=== PATIENT | female | born 1970 | race Two or more races ===

== ENCOUNTER 2017-11-03 10:39 | Emergency (ER) | payer OTHER ==
[~2017-11-03] VITALS: Ht 165.1 cm; Wt 56.7 kg
== END 2017-11-03 14:12 | disposition home or self-care (01) ==
LOC: ER 10:39
DX: K52.9 Noninfective gastroenteritis and colitis, unspecified (principal)

== ENCOUNTER → 2024-04-18 | Emergency (ER) | payer OTHER ==
[~2024-04-18] VITALS: Ht 165.1 cm; Wt 64.4 kg
[~2024-04-18] MED LIST: BUTALB/ACETAMINOPHEN/CAFFEINE 1 TAB TABLET PO ONE; CEFTRIAXONE SODIUM 1,000 MG VIAL IV ONE; FAMOtidine 10 MG/ML (4ML VIAL) IV PUSH ONE; KETOROLAC TROMETHAMINE 30 MG VIAL IU ONE; PEPCID AC20 MG PO; PYRIDIUM DS200 MG PO; TAMSULOSIN HCL 0.4 MG CAP PO ONE; ZOFRAN8 MG PO
[2024-04-18 10:35] LABS: MEAN CELL VOLUME 87.6 fL (80.00-100.00); MEAN CORPUSCULAR HEMOGLOBIN 28.6 pg (27.00-32.0); MEAN CORPUSCULAR HGB CONC 32.6 g/dl (32.0-36.0); RED BLOOD COUNT 5.25 M/uL (4.00-6.00); RED CELL DISTRIBUTION WIDTH 12.8 % (11.5-14.5)
[2024-04-18 10:38] LABS: PLATELET COUNT 119 K/uL (150-450)
[2024-04-18 10:58] LABS: ALBUMIN 4.1 gm/dL (3.4-5.0); BILIRUBIN TOTAL 0.36 mg/dL (0.3-1.2); CALCIUM 8.9 mg/dL (8.5-10.1); CREATININE SERUM 0.78 mg/dL (0.55-1.02); GFR 77.55; GLOBULINA 3.3 G/DL (2.4-3.5); POTASSIUM 4.61 mEq/L (3.5-5.1); TOTAL PROTEIN 7.4 gm/dL (6.4-8.2)
[2024-04-18 12:01] LABS: URINE APPEARANCE Clear; URINE BILIRRUBIN Negative (NEGATIVE); URINE BLOOD Negative; URINE COLOR Yellow; URINE GLUCOSE Negative (NEGATIVE); URINE KETONE Trace (NEGATIVE); URINE LEUKOCYTE Negative; URINE NITRATE Negative; URINE PROTEIN 30 (NEGATIVE); URINE UROBILINOGEN 0.2 E.U./dl
[2024-04-18 12:05] LABS: URINE BACTERIA 767.3 uL (0.0-1933); URINE EPITHELIAL CELLS 10.9 uL (0.0-38.8); URINE RBC 11.4 uL (0.0-20.8); URINE WBC 6.8 uL (0.0-23.2)
[2024-04-18 12:22] LABS: URINE CAST 0.14 uL (0.0-1.40)
== END | disposition home or self-care (01) ==
LOC: ER 06:58
PROVIDERS: General Practice
DX: A90 Dengue fever [classical dengue] (principal); R50.9 Fever, unspecified; Z20.822 Contact with and (suspected) exposure to COVID-19

== ENCOUNTER 2024-04-20 18:11 | Inpatient (IN) | payer OTHER ==
[~2024-04-20] VITALS: Ht 165.1 cm; Wt 64.0 kg
[~2024-04-20 18:11] MED LIST changes: -BUTALB/ACETAMINOPHEN/CAFFEINE 1 TAB TABLET PO ONE; -CEFTRIAXONE SODIUM 1,000 MG VIAL IV ONE; -FAMOtidine 10 MG/ML (4ML VIAL) IV PUSH ONE; -KETOROLAC TROMETHAMINE 30 MG VIAL IU ONE; -TAMSULOSIN HCL 0.4 MG CAP PO ONE
[2024-04-20] MEDS ORDERED: ACETAMINOPHEN 500 MG GEL..CAP PO ONE (18:45)
[2024-04-20] MEDS ORDERED: 0.9 % SODIUM CHLORIDE 1,000 ML IV SCH ×2 (18:45→23:00)
[2024-04-20 21:54] LABS: INR 0.95; PARTIAL THROMBOPLASTIN TIME 27.9 SECONDS (22.0-34.0); PROTHROMBIN TIME 10.4 SECONDS (9.0-11.5)
[2024-04-20 22:08] LABS: ALBUMIN 3.1 gm/dL (3.4-5.0); BILIRUBIN TOTAL 0.23 mg/dL (0.3-1.2); CALCIUM 7.9 mg/dL (8.5-10.1); CREATININE SERUM 0.7 mg/dL (0.55-1.02); GFR 87.87; GLOBULINA 3.1 G/DL (2.4-3.5); POTASSIUM 3.59 mEq/L (3.5-5.1); TOTAL PROTEIN 6.2 gm/dL (6.4-8.2)
[2024-04-20 22:30] LABS: HEMATOCRIT 39.1 % (36.0-45.00); HEMOGLOBIN 12.8 g/dL (12.0-15.00); MEAN CELL VOLUME 87.2 fL (80.00-100.00); MEAN CORPUSCULAR HEMOGLOBIN 28.6 pg (27.00-32.0); MEAN CORPUSCULAR HGB CONC 32.8 g/dl (32.0-36.0); PLATELET COUNT 72 K/uL (150-450); RED BLOOD COUNT 4.48 M/uL (4.00-6.00); RED CELL DISTRIBUTION WIDTH 12.7 % (11.5-14.5)
[2024-04-20] MEDS ORDERED: ACETAMINOPHEN 500 MG GEL..CAP PO PRN (23:00)
[2024-04-20] MEDS ORDERED: MORPHINE SULFATE 2 MG/ML CARTRIDGE IV PRN (23:00)
[2024-04-21 05:16] LABS: MANUAL PLATELET COUNT 94
[2024-04-21 05:21] LABS: PLT IN CITRATE 56 K/uL (150-450)
[2024-04-21 06:19] LABS: URINE APPEARANCE Clear; URINE BILIRRUBIN Negative (NEGATIVE); URINE BLOOD Negative; URINE COLOR Yellow; URINE GLUCOSE Negative (NEGATIVE); URINE KETONE Negative (NEGATIVE); URINE LEUKOCYTE Trace; URINE NITRATE Negative; URINE PROTEIN Negative (NEGATIVE); URINE UROBILINOGEN 0.2 E.U./dl
[2024-04-21 06:22] LABS: URINE BACTERIA 2199.5 uL (0.0-1933); URINE EPITHELIAL CELLS 37.9 uL (0.0-38.8); URINE RBC 2.6 uL (0.0-20.8); URINE WBC 16.3 uL (0.0-23.2)
[2024-04-21 06:27] LABS: URINE CAST 0.29 uL (0.0-1.40)
[2024-04-21] MEDS ORDERED: PANTOPRAZOLE SODIUM 40 MG/VIAL VIAL IV SCH (09:00)
[2024-04-21 16:50] VITALS: BP 99/60; O2SAT 99
[2024-04-21] MEDS ORDERED: CEFTRIAXONE SODIUM 2,000 MG VIAL IV SCH (17:00)
[2024-04-22 00:55] VITALS: BP 102/60; O2SAT 97
[2024-04-22 05:39] LABS: HEMOGLOBIN 12.6 g/dL (12.0-15.00); MEAN CELL VOLUME 87.1 fL (80.00-100.00); MEAN CORPUSCULAR HGB CONC 33.3 g/dl (32.0-36.0); RED BLOOD COUNT 4.36 M/uL (4.00-6.00); RED CELL DISTRIBUTION WIDTH 12.6 % (11.5-14.5)
[2024-04-22 05:44] LABS: ALKALINE PHOSPHATASE 82 U/L (50-136); ALT/SGPT 145 U/L (12-78); AST/SGOT 118 U/L (15-37); BILIRUBIN TOTAL 0.37 mg/dL (0.3-1.2); BLOOD UREA NITROGEN 7 mg/dL (7-18); BUN CREA RATIO 11 (7.0-25.0); CALCIUM 8.4 mg/dL (8.5-10.1); CARBON DIOXIDE 29 mEq/L (21-32); CHLORIDE 114 mmol/L (98-107); CREATININE SERUM 0.65 mg/dL (0.55-1.02); GFR 95.72; GLOBULINA 2.8 G/DL (2.4-3.5); GLUCOSE FASTING 96 mg/dL (65-100); HEMATOCRIT 37.9 % (36.0-45.00); HEMOGLOBIN 12.6 g/dL (12.0-15.00); MEAN CELL VOLUME 86.9 fL (80.00-100.00); MEAN CORPUSCULAR HEMOGLOBIN 28.8 pg (27.00-32.0); MEAN CORPUSCULAR HGB CONC 33.2 g/dl (32.0-36.0); OSMOLALITY SERUM 274 MOSM/KG (275-295); PHOSPHOROUS 3.8 mg/dL (2.5-4.9); POTASSIUM 3.88 mEq/L (3.5-5.1); RED BLOOD COUNT 4.36 M/uL (4.00-6.00); RED CELL DISTRIBUTION WIDTH 12.6 % (11.5-14.5); SODIUM 138 mmol/L (136-145); TOTAL PROTEIN 5.8 gm/dL (6.4-8.2)
[2024-04-22 05:49] LABS: C-REACTIVE PROTEIN < 0.29 MG/DL (0.00-0.29)
[2024-04-22 05:51] LABS: PLATELET COUNT 93 K/uL (150-450)
[2024-04-22 06:42] LABS: MANUAL PLATELET COUNT 204
[2024-04-22 06:44] LABS: PLATELET COUNT 88 K/uL (150-450)
[2024-04-22 09:21] VITALS: BP 119/74; O2SAT 98
== END 2024-04-22 13:35 | disposition home or self-care (01) | DRG 813 ==
LOC: ER 18:13 → MEDI 22:59 → SEC-K 22:59 → MEDI 04-21 10:45
PROVIDERS: General Practice; Internal Medicine Infectious Disease; ADMIT Student in an Organized Health Care Education/Training Program; ATTEND Student in an Organized Health Care Education/Training Program
PROC: BW40ZZZ Ultrasonography of Abdomen (ICD-10-PCS; principal; 2024-04-20)
DX: D69.6 Thrombocytopenia, unspecified (principal); A90 Dengue fever [classical dengue]

== ENCOUNTER 2024-11-11 09:53 | Emergency (ER) | payer OTHER ==
[~2024-11-11] VITALS: Ht 165.1 cm; Wt 65.3 kg
[2024-11-11] MEDS ORDERED: DICLOFENAC SODI75 MG PO (12:10)
[2024-11-11] MEDS ORDERED: BACLOFEN10 MG PO (12:10)
[2024-11-11] MEDS ORDERED: KETOROLAC TROMETHAMINE 60 MG VIAL IM ONE ×2 (12:15→12:20)
[2024-11-11] MEDS ORDERED: ORPHENADRINE CITRATE 30 MG/ML AMPUL IM ONE (12:15)
[2024-11-11] MEDS ORDERED: DEXAMETHASONE SODIUM PHOSPHATE 4 MG/ML VIAL IM ONE (12:15)
[2024-11-11] MEDS ORDERED: ORPHENADRINE CITRATE 30 MG/ML AMPUL ONE (12:19)
[2024-11-11] MEDS ORDERED: DEXAMETHASONE SODIUM PHOSPHATE 4 MG/ML VIAL ONE (12:20)
== END 2024-11-11 12:51 | disposition home or self-care (01) ==
LOC: ER 09:53
DX: M54.50 Low back pain, unspecified (principal)